=== PATIENT | male | born 1965 | race Caucasian/White ===

== ENCOUNTER 2019-02-24 18:50 | Observation (INO) | payer SELFPAY ==
[~2019-02-24] VITALS: Ht 182.9 cm; Wt 135.6 kg
[2019-02-24] MEDS ORDERED: SODIUM CHLORIDE 0.9% 1000ML 1,000 ML ONE (19:16)
[2019-02-24] MEDS ORDERED: SODIUM CHLORIDE 0.9% 1000ML 1,000 ML IV STA (19:20)
[2019-02-24 19:25] LABS: BASOPHILS # (AUTO) 0.1 (0.0-0.1); BASOPHILS % 0.6 % (0.0-1.0); EOSINOPHILS # (AUTO) 0.2 (0.0-0.4); EOSINOPHILS % 1.5 % (0.0-6.0); HEMATOCRIT 41.7 % (38.2-49.6); HEMOGLOBIN 14.3 g/dL (14.0-18.0); LYMPHOCYTES # (AUTO) 2.8 (1.0-3.2); LYMPHOCYTES % 27.7 % (18.0-39.1); MEAN CORPUSCULAR HEMOGLOBIN 30.3 pg (28-32); MEAN CORPUSCULAR HGB CONC 34.3 g/dL (31-35); MEAN CORPUSCULAR VOLUME 88.3 fL (81-99); MONOCYTES # (AUTO) 1.1 (0.2-0.8); MONOCYTES % 10.5 % (4.4-11.3); NEUTROPHILS % 59.3 % (38.7-80.0); PLATELET COUNT 318 x10e3/uL (140-360); RED BLOOD COUNT 4.72 x10e6/uL (4.3-5.7); RED CELL DISTRIBUTION WIDTH 12.6 % (11.7-14.4)
[2019-02-24 19:35] LABS: INR 0.98; PARTIAL THROMBOPLASTIN TIME 27.5 seconds (23.8-35.5); PROTHROMBIN TIME 13.5 seconds (11.9-14.5)
[2019-02-24 19:42] LABS: ALBUMIN 4.3 g/dL (3.5-5.0); ALBUMIN/GLOBULIN RATIO 1.5 (0.8-2.0); ANION GAP 18.6 mmol/L (8-16); CALCIUM 10.6 mg/dL (8.4-10.2); CREATININE, SERUM 2.47 mg/dL (0.72-1.25); POTASSIUM 4.6 mmol/L (3.5-5.1)
[2019-02-24 19:48] LABS: CREATINE KINASE MB 2.7 ng/mL (0-5.0)
[2019-02-24 20:00] VITALS: BP 134/66
[2019-02-24] MEDS ORDERED: ASPIR 8181 MG PO (20:29)
[2019-02-24] MEDS ORDERED: LISINOPRIL20 MG PO (20:29)
[2019-02-24] MEDS ORDERED: METFORMIN HCL500 MG PO (20:29)
--- NOTE | 2019-02-24 20:34 | Diagnostic Imaging Report ---
EXAMINATION: CHEST SINGLE (PORTABLE) INDICATION: Chest pain, short of breath COMPARISON: None FINDINGS: AP view TUBES and LINES: None. LUNGS: Lungs are well inflated. Lungs are clear. There is no evidence of pneumonia or pulmonary edema. PLEURA: No pleural effusion or pneumothorax. HEART AND MEDIASTINUM: The cardiomediastinal silhouette is unremarkable. BONES AND SOFT TISSUES: No acute osseous lesion. Soft tissues are unremarkable. UPPER ABDOMEN: No free air under the diaphragm. IMPRESSION: No acute thoracic radiographic abnormality. Signed by: Feng Reyes DO on 02/24/2019 8:31 PM
[2019-02-24] MEDS ORDERED: DEXTROSE 50% SYRINGE 50 ML IV PRN (20:45)
[2019-02-24] MEDS ORDERED: ONDANSETRON HCL INJ 2MG/ML 2ML 2 MG/ML VIAL IV PRN (20:45)
[2019-02-24] MEDS: INSULIN REGULAR, HUMAN 100 UNIT/1 ML 3ML VIAL SQ SCH (21:00)
--- OUTSIDE RECORDS SUMMARY | 2019-02-24 21:12 | XMS REPORT ---
[facility] Address Unknown Phone Unavailable Care Team Providers Care Shucker Name Role Phone Marcus HERNANDEZ Unavailable Unavailable Problems This patient has no known problems. Allergies, Adverse Reactions, Alerts This patient has no known allergies or adverse reactions. Medications This patient has no known medications. Results Test Description Test Time Test Comments Text Results Atomic Results Result Comments CHEST SINGLE (PORTABLE) 2019-02-24 20:30:00 [facility] [address] [place] [address] Patient Name: ANGE MONGE MR #: [id number] : 1965 Age/Sex: 53/M Req #: [id number] Adm Physician: Ordered by: ANI HERNANDEZ MD Report #: [id number] Location: ER Room/Bed: Procedure: [id number] DX/CHEST SINGLE (PORTABLE) Exam Date: 02/24/19 Exam Time: 1950 REPORT STATUS: Signed EXAMINATION: CHEST SINGLE (PORTABLE) LEA CATION: Chest pain, short of breath COMPARISON: None FINDINGS: AP view TUBES and LINES: None. LUNGS: Lungs are well inflated. Lungs are clear. There is no evidence of pneumonia or pulmonary edema. PLEURA: No pleural effusion or pneumothorax. HEART AND MEDIASTINUM: The cardiomediastinal silhouette is unremarkable. BONES AND SOFT TISSUES: No acute osseous lesion. Soft tissues are unremarkable. UPPER ABDOMEN: No free air under the diaphragm. IMPRESSION: No acute thoracic radiographic abnormality. Signed by: Feng Reyes DO on 02/24/2019 8:31 PM Dictated By: FENG REYES DO 30 Transcribed By: YONATHAN on 02/24/192030 COPY TO: ANI HERNANDEZ MD
[2019-02-24] MEDS: SODIUM CHLORIDE 0.9% 1000ML 1,000 ML IV SCH (22:00)
[2019-02-24 22:25] VITALS: BP 134/66
[2019-02-24 22:34] VITALS: BP 134/66
[2019-02-25] VITALS: BP 118/62
[2019-02-25] MEDS: SODIUM CHLORIDE 0.9% 1000ML 1,000 ML IV SCH ×2 (03:52→10:12)
[2019-02-25 04:00] VITALS: BP 115/64
[2019-02-25 04:11] LABS: BASOPHILS # (AUTO) 0.1 (0.0-0.1); BASOPHILS % 0.7 % (0.0-1.0); EOSINOPHILS # (AUTO) 0.3 (0.0-0.4); EOSINOPHILS % 3.3 % (0.0-6.0); HEMATOCRIT 40.6 % (38.2-49.6); HEMOGLOBIN 13.2 g/dL (14.0-18.0); LYMPHOCYTES # (AUTO) 3.2 (1.0-3.2); LYMPHOCYTES % 41.3 % (18.0-39.1); MEAN CORPUSCULAR HEMOGLOBIN 29.4 pg (28-32); MEAN CORPUSCULAR HGB CONC 32.5 g/dL (31-35); MEAN CORPUSCULAR VOLUME 90.4 fL (81-99); MONOCYTES # (AUTO) 0.9 (0.2-0.8); MONOCYTES % 11.8 % (4.4-11.3); NEUTROPHILS # (AUTO) 3.3 (2.1-6.9); NEUTROPHILS % 42.6 % (38.7-80.0); PLATELET COUNT 246 x10e3/uL (140-360); RED BLOOD COUNT 4.49 x10e6/uL (4.3-5.7); RED CELL DISTRIBUTION WIDTH 12.7 % (11.7-14.4)
[2019-02-25 04:25] LABS: ALBUMIN 3.5 g/dL (3.5-5.0); ALBUMIN/GLOBULIN RATIO 1.3 (0.8-2.0); ANION GAP 13.6 mmol/L (8-16); CALCIUM 9.8 mg/dL (8.4-10.2); CHOL/HDL RATIO 3.2 (3.9-4.7); CREATININE, SERUM 1.68 mg/dL (0.72-1.25); POTASSIUM 4.6 mmol/L (3.5-5.1)
--- NOTE | 2019-02-25 06:21 | NUR ---
CALLED LAB REGARDING THE CARDIAC MARKER DRAWN AT [phone]. LAB SAID THEY ARE HAVING A PROBLEM WITH THEIR MACHINE. CARDIAC MARKER STILL PENDING AT THIS TIME.
[2019-02-25] MEDS: INSULIN REGULAR, HUMAN 100 UNIT/1 ML 3ML VIAL SQ SCH ×2 (07:30→11:30)
[2019-02-25 07:39] LABS: CREATINE KINASE 149 IU/L (30-200)
[2019-02-25 08:10] VITALS: BP 115/64
[2019-02-25 08:28] VITALS: BP 103/55
[2019-02-25] MEDS ORDERED: ASPIRIN 81 MG ENTERIC COATED PO SCH (09:00)
[2019-02-25 12:14] VITALS: BP 130/64
[2019-02-25] MEDS ORDERED: AMLODIPINE BESYL5 MG PO (13:28)
[2019-02-25] MEDS ORDERED: GLUCOTROL XL10 MG PO (13:28)
[2019-02-25 14:12] LABS: BLOOD UREA NITROGEN 21 mg/dL (7-26); BUN/CREATININE RATIO 18 (6-25); CALCIUM 9.2 mg/dL (8.4-10.2); CARBON DIOXIDE 22 mmol/L (22-29); CHLORIDE 104 mmol/L (98-107); CREATININE, SERUM 1.19 mg/dL (0.72-1.25); EST GLOMERULAR FILTRATION RATE > 60 ML/MIN (60-); GLUCOSE 187 mg/dL (74-118); SODIUM 135 mmol/L (136-145)
[2019-02-25 14:36] LABS: CREATINE KINASE 147 IU/L (30-200)
--- NOTE | 2019-02-25 15:45 | NUR ---
DISCHARGE INSTRUCTIONS AND PRESCRIPTIONS GIVEN PT VERBALIZED UNDERSTANDING IV DC PRESSURE DRESSING APPLIED AND TAPED PT IS NOW OFF UNIT TO HOME
--- NOTE | 2019-02-25 15:52 | Discharge Summary ---
CLINICAL HISTORY: This is a 53-year-old white man, admitted via the emergency room because of acute kidney injury on top of chronic kidney disease as well as vague complaints of chest discomfort, generalized weakness with radiation to the back, shoulders, and both hips. Please refer to my previous dictation concerning details of current illness, past medical history, personal and social history, family history, review of systems, physical examination, and initial laboratory studies. HOSPITAL COURSE: As mentioned, the patient's chest discomfort completely resolved after approximately 400 mL of IV fluids. He was continued on additional IV fluids until his renal function gradually improved to BUN of 28, creatinine 1.68, GFR 43 by 3 o'clock in the morning. A repeat blood test at 1:00 p.m. is still pending. His blood sugar remained satisfactory. It was decided because of renal insufficiency to discontinue metformin and to change his blood pressure medication to something else, possibly amlodipine. He was discharged on amlodipine 2.5 mg per day after blood pressure becomes high and Glucotrol 5 mg p.o. daily. He was given activity, diet, medication, and followup instructions, will see Dr. Armand Viera in 1 week and will see me in 1 week for stress testing. MD DANIELLE Bonds/REYNA /[id number] cc: Armand Viera
--- NOTE | 2019-02-25 16:02 | History and Physical ---
CLINICAL HISTORY: This is a 53-year-old white man, admitted via the emergency room because of generalized weakness. Upon further questioning, Mr. Ac continues to having mild chest discomfort radiating to both shoulders and to the back as well as to the hips bilaterally. This apparently occurred the day prior to admission after he was working on the garden. 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 He came home, did not take a drink or any additional amounts of fluids. The next day, namely the day of admission, he felt even worse, decides to come to the emergency room. Workup in the emergency room was negative including chest x-ray, EKG, echocardiogram, and cardiac enzymes. He was, however, volume depleted or has underlying chronic kidney disease. His BUN was 32, creatinine was 2.47. This patient does have history of diabetes and hypertension. He is taking lisinopril and metformin. However, he apparently has missed several doses. Nevertheless, his blood pressure was low instead of being high, in the range of 115/60, falling down to 103/55. He was given a liter of fluid in the ICU and his chest discomfort completely resolved after approximately 400 mL of fluids. He continued to be feeling weak and was admitted. PAST MEDICAL HISTORY: Remarkable for the above patient conditions, that is history of diabetes, hypertension. He is taking lisinopril and metformin as well as aspirin 162 mg per day. PERSONAL AND SOCIAL HISTORY: Please refer to previous records. FAMILY HISTORY: Please refer to previous records. PHYSICAL EXAMINATION: GENERAL: He is alert, coherent, appears to be comfortable. VITAL SIGNS: Stable. CARDIAC: Jugular veins are nondistended. S1, S2 are regular. There are no appreciable murmurs. LUNGS: Clear. ABDOMEN: Soft. Bowel sounds are present. EXTREMITIES: Show no cyanosis, clubbing, or edema. IMPRESSION: 1. Vague chest discomfort radiating to both shoulders after working out in the yard with radiation to both hips. Consider coronary artery disease with late presentation and ECG and enzymes normal. Echocardiogram was also normal. 2. Diabetes. 3. Hypertension. 4. Acute kidney injury on chronic kidney disease. BUN 32, creatinine 2.47, GFR 28. RECOMMENDATION: Intravenous fluids. Serial enzymes. Check CK, CK-MB, consider stress test, which can be done on outpatient basis. Kole K MD DANIELLE Campbell/REYNA /[id number] cc: Armand Viera
== END 2019-02-25 15:45 | disposition home or self-care (01) ==
LOC: ER 18:50 → ERHOLD 21:09 → MED/SURG 21:22
PROVIDERS: ADMIT Internal Medicine Cardiovascular Disease; ATTEND Internal Medicine Cardiovascular Disease
DX: N17.9 Acute kidney failure, unspecified (principal); E11.22 Type 2 diabetes mellitus with diabetic chronic kidney disease; I12.9 Hypertensive chronic kidney disease with stage 1 through stage 4 chronic kidney disease, or unspecified chronic kidney disease; N18.9 Chronic kidney disease, unspecified; Z91.14 Patient's other noncompliance with medication regimen; R07.9 Chest pain, unspecified
CPT/HCPCS: 36415 ×2; 71045; 80048; 80053 ×2; 80061; 82550 ×2; 82553 ×2; 82948 ×2; 83880; 83970; 84443; 84484 ×2; 85025 ×2; 85379; 85610; 85730; 93005; 93306; 99284; G0378 ×2; J7030 ×2